=== PATIENT | male | born 1970 | race Caucasian/White ===

== ENCOUNTER 2020-08-05 19:58 | Emergency (ER) | payer MEDICAID ==
[~2020-08-05] VITALS: Ht 172.7 cm; Wt 89.0 kg
[~2020-08-05 19:58] MED LIST: NO HOME MEDS
[2020-08-05 20:25] LABS: BASOPHILS # (AUTO) 0.1 X10'3 (0-0.2); BASOPHILS % (AUTO) 1.1 % (0-1); EOSINOPHILS # (AUTO) 0.3 X10'3 (0-0.9); HEMATOCRIT 47.3 % (42.0-52.0); HEMOGLOBIN 16.5 g/dl (14.0-17.9); LYMPHOCYTES # (AUTO) 3.1 X10'3 (1.1-4.8); LYMPHOCYTES % (AUTO) 30.3 % (21-51); MEAN CORPUSCULAR HEMOGLOBIN 30.3 PG (27.0-31.0); MEAN CORPUSCULAR HGB CONC 34.8 g/dL (33.0-36.5); MEAN PLATELET VOLUME 7.5 FL (7.4-10.4); MONOCYTES # (AUTO) 0.7 X10'3 (0-0.9); MONOCYTES % (AUTO) 6.9 % (2-12); NEUTROPHILS # (AUTO) 6.1 X10'3 (1.8-7.7); NEUTROPHILS % (AUTO) 58.7 % (42-75); PLATELET COUNT 240 X10'3 (140-440); RED BLOOD COUNT 5.44 X10'6 (4.70-6.10); RED CELL DISTRIBUTION WIDTH 13.6 % (11.5-14.5); WHITE BLOOD COUNT 10.4 X10'3 (4.5-11.0)
--- NOTE | 2020-08-05 20:32 | NUR ---
PT IS CALM. STATES TO DR. PATTERSON THAT HE DOES NOT WANT TO HARM HIMSELF BUT ALSO STATES "RIGHT NOW...I JUST DON'T KNOW" ALSO STATING "THIS WAS STUPID".
[2020-08-05 20:37] LABS: ALANINE AMINOTRANSFERASE 30 U/L (12-78); ALBUMIN/GLOBULIN RATIO 1.2 (1.1-1.5); ALKALINE PHOSPHATASE 66 IU/L (46-116); ANION GAP 12 (8-16); ASPARTATE AMINO TRANSFERASE 18 U/L (10-37); BILIRUBIN,TOTAL 1.4 MG/DL (0.1-1.0); BLOOD UREA NITROGEN 12 MG/DL (7-18); BUN/CREATININE RATIO 10.3 (5.4-32.0); CALCIUM 8.3 MG/DL (8.5-10.1); CHLORIDE 105 MMOL/L (99-107); CREATININE 1.17 MG/DL (0.60-1.10); ETHANOL 0.184 GM/DL (0.0-0.010); GLUCOSE 117 MG/DL (70-104); POTASSIUM 3.2 MMOL/L (3.5-5.1); SODIUM 143 MMOL/L (135-145); TOTAL CARBON DIOXIDE 25.8 MMOL/L (24-32); TOTAL PROTEIN 7.3 G/DL (6.4-8.2); eGFR 66 ML/MIN
[2020-08-05 21:12] LABS: URINE AMPHETAMINE SCREEN NEGATIVE (Neg); URINE BARBITUATE SCREEN NEGATIVE (Neg); URINE BENZODIAZEPINES SCREEN NEGATIVE (Neg); URINE CANNABINOID SCREEN POSITIVE (Neg); URINE COCAINE SCREEN NEGATIVE (Neg); URINE METHADONE SCREEN NEGATIVE (Neg); URINE OPIATE SCREEN NEGATIVE (Neg); URINE PHENCYCLIDINE SCREEN NEGATIVE (Neg)
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
--- NOTE | 2020-08-05 22:16 | NUR ---
Pt appears to be resting comfortably, no s/s of distress.
--- NOTE | 2020-08-06 01:16 | NUR ---
Pt appears to be sleeping comfortably, no s/s of distress.
--- NOTE | 2020-08-06 03:37 | NUR ---
Pt is sleeping, no s/s of distress.
--- NOTE | 2020-08-06 04:59 | NUR ---
Pt resting in bed, no s/s of distress.
[2020-08-06 06:02] VITALS: BP 132/88
--- NOTE | 2020-08-06 07:05 | NUR ---
pt is supine in bed, eyes closed, regular breathing observed, no needs at this time
--- NOTE | 2020-08-06 08:05 | NUR ---
pt is eating his breakfast, calm, acepting of medications, no needs at this time
--- NOTE | 2020-08-06 08:45 | NUR ---
pt is being eval by THANIA Quevedo, calm no needs at this time
--- NOTE | 2020-08-06 10:00 | NUR ---
pt is supine in bed, no needs at this time
--- NOTE | 2020-08-06 11:10 | NUR ---
pt is being discharged, signed paperwork, awaiting cab
--- NOTE | 2020-08-06 12:23 | NUR ---
CALLED [facility], THEY ARE BACKED UP, AWAITING TRANSPORT
[2020-08-06] MEDS ORDERED: potassium Cl 20 mEq SR tablet PO SCH (13:00)
== END 2020-08-06 13:36 | disposition home or self-care (01) ==
LOC: ER 19:58
DX: Z02.89 Encounter for other administrative examinations (principal); R45.851 Suicidal ideations; Z72.89 Other problems related to lifestyle; Z98.890 Other specified postprocedural states
CPT/HCPCS: 36415; 70450; 80053; 80305; 80320; 85025; 99285

== ENCOUNTER 2024-09-05 18:26 | Emergency (ER) | payer MEDICAID ==
[~2024-09-05] VITALS: Ht 172.7 cm; Wt 75.0 kg
--- NOTE | 2024-09-05 18:37 | ELECTROCARDIOGRAPH REPORT ---
[facility] Test Date: 2024-09-05 Test Time: 18:30:07 Pat Name: GLO MORALES Department: EMERGENCY ROOM Patient ID: [facility]-[id number] Room: Gender: M [employer] Project Manager: : 1970 Requested By: JEREMY JACQUES Order Number: [id number] Reading MD: Dr. Jeremy Jacques Measurements Intervals [place] Rate: 57 P: 26 SC: 135 QRS: 64 QRSD: 101 T: 41 QT: 416 QTc: 405 Interpretive Statements Sinus bradycardia Electronically Signed On 09-05-2024 19:00:[address] Jeremy Jacques Please click the below link to view image of tracing.
--- NOTE | 2024-09-05 18:52 | RADIOLOGY REPORT ---
CHEST RADIOGRAPH REASON FOR EXAM: Chest pain COMPARISON: None TECHNIQUE: One view of the chest is provided FINDINGS: The cardiomediastinal silhouette is within normal limits for technique. There is no focal a irspace disease. There is no significant pleural effusion. No acute bony abnormality is identified. IMPRESSION: No radiographic evidence of acute cardiopulmonary process.
[2024-09-05 19:08] LABS: MEAN PLATELET VOLUME 7.8 FL (7.4-10.4); RED CELL DISTRIBUTION WIDTH 13.4 % (11.5-14.5)
[2024-09-05 19:10] LABS: CREATININE 1.13 MG/DL (0.60-1.10); PRO BRAIN NATRIURETIC PEPTIDE < 30 PG/ML (0-125); TOTAL CARBON DIOXIDE 26.4 MMOL/L (24-32); eCRCL 73 ML/MIN; eGFR 68 ML/MIN
--- NOTE | 2024-09-05 20:39 | Physician Documentation ---
History of Present Illness ~ Chief Complaint: Chest Pain Stated Complaint: CP Time Seen by MD: 19:55 Mode of Arrival: POV HPI This 54-year-old male presents to the ED with a complaint of chest pain for the last 2 days. Reports it as being a chest pressure versus sharp pain. States he has also had episodes of dizziness. Day his dizziness has somewhat subsided. Does report having in a high stress life. Denies any anxiety however per Denies any nausea vomiting or any alleviating or exacerbating factors. The chest pressure is nonradiating. Denies any cardiac history. Does not have a primary care. Day of Onset: Sep 05, 2024 Medication Reconciliation Allergies: Coded Allergies: No Known Allergies (Unverified , 09/05/24) Miscellaneous Medications Home Med List (No Home Medications), (Reported) Past Medical History Past Medical History: No Pertinent History Past Surgical History: orthopedic surgeries Alcohol Use: Heavy Lives In: Home Occupation: employed Review of Systems All Other Systems at this time: Reviewed and Negative ROS As stated above in the HPI, otherwise all systems are reviewed and negative. Physical Exam Vital Signs: Temperature: 97.8, Source: Oral, Heart Rate: 83, Respiratory Rate: 19, BP: 130/97, Pulse Oximetry: 98, Weight: 75.000 Oxygen Flow Rate: 0 Physical Exam General: Alert, no apparent distress. Respiratory: Lungs clear, no respiratory distress. Cardiovascular: Regular rate and rhythm, no murmurs. Gastrointestinal: Soft, nontender, nondistended. Bowels sounds present. Extremities: Normal range of motion, no deformity. Neurologic: Oriented x4. Psychiatric: Normal mood and affect. Skin: Normal color, warm and dry. No edema, no ecchymosis. Progress Results/Orders Results/Orders Vital Signs 09/05/24 09/05/24 09/05/24 18:31 18:44 18:45 Temp 97.8 97.8 Pulse 74 83 Resp 14 19 B/P (MAP) 170/99 130/97 (108) Pulse Ox 99 98 O2 Flow Rate 0 0 Laboratory Tests Test 09/05/24 18:36 White Blood Count 8.7 Red Blood Count 5.30 Hemoglobin 16.8 Hematocrit 47.5 Mean Corpuscular Volume 89.8 Mean Corpuscular Hemoglobin 31.7 H Mean Corpuscular Hemoglobin Concent 35.4 Red Cell Distribution Width 13.4 Platelet Count 245 Mean Platelet Volume 7.8 Neutrophils (%) (Auto) 60.3 Lymphocytes (%) (Auto) 27.5 Monocytes (%) (Auto) 7.3 Eosinophils (%) (Auto) 3.9 Basophils (%) (Auto) 1.0 Neutrophils # (Auto) 5.3 Lymphocytes # (Auto) 2.4 Monocytes # (Auto) 0.6 Eosinophils # (Auto) 0.3 Basophils # (Auto) 0.1 CBC Comment Sodium Level 136 Potassium Level 3.8 Chloride Level 104 Carbon Dioxide Level 26.4 Anion Gap 6 L Blood Urea Nitrogen 12 Creatinine 1.13 H Estimated GFR/1.73 m2 68 BUN/Creatinine Ratio 10.6 Glucose Level 98 Calcium Level 8.7 Troponin I High Sensitivity 6 Pro-B-Type Natriuretic Peptide < 30 Albumin 3.9 Chemistry Comments Medical Decision Making Findings Discussed with the patient that his laboratory values are very unremarkable as was his EKG and x-ray per my interpretation. Was no evidence of infiltrate cardiomegaly in his x-ray. EKG was regular normal sinus. No evidence of elevated troponins or proBNP in his laboratory values. no Signs of infections.. At this stage in the patient's care I do not currently suspect cardiac event. He is also neurologically intact and show no evidence of focal deficits vision changes. He does meet criteria for further evaluation in the outpatient setting via laboratory values. His symptoms may have been partially caused by minor dehydration. Discuss all my findings some and he agreed he needs to establish with primary care for further eval Differential Dx:Considerations: Include: angina, aortic dissection, chest wall pain, cholelithiasis, CHF, costochondritis, esophageal reflux/spasm, gastritis, herpes zoster, myocardial infarction, pericarditis, pleuritis, pancreatitis, pneumonia, pneumothorax, pulmonary embolus, other Departure Disposition: HOME / SELF CARE / HOMELESS Impression: Primary Impression: Chest pain at rest Additional Impression: Chest pain Discharge Instructions: Nonspecific Chest Pain, Adult Additional Instructions: She has a recommend that she follow up with primary care to establish a baseline lab values and overall physical health Referrals: NO PRIMARY CARE PROVIDER (PCP) Signature Scribe Signature: f Attestation: Scribed for Bishop Mancilla Gatekeeper by Bishop Huerta NP . 09/05/24 20:38 BISHOP MANCILLA NP Sep 05, 2024 20:39
[2024-09-05 20:59] VITALS: BP 149/88; PULSE 71; RESP 12; TEMP 97.8; O2SAT 96
== END 2024-09-05 21:01 | disposition home or self-care (01) ==
LOC: ER 18:28
DX: R07.89 Other chest pain (principal); F10.90 Alcohol use, unspecified, uncomplicated; Y90.9 Presence of alcohol in blood, level not specified
CPT/HCPCS: 36415; 71045; 80048; 83880; 84484; 85025; 93005; 99285

== ENCOUNTER 2025-02-03 09:13 | Emergency (ER) | payer SELFPAY ==
[~2025-02-03] VITALS: Ht 172.7 cm; Wt 81.0 kg
--- NOTE | 2025-02-03 10:00 | Physician Documentation ---
History of Present Illness ~ General Chief Complaint: Flu Symptoms Stated Complaint: FLU SYMPTOMS Time Seen by MD: 09:39 Source: patient Mode of Arrival: EMS Exam Limitations: no limitations History of Present Illness Initial Comments 54-year-old brought in by EMS for flu-like symptoms including nausea vomiting diarrhea patient was concerned and called EMS due to dizziness he is able to hold a small amount of fluid and food down. No head trauma falls or head strike Medication Reconciliation Allergies: Coded Allergies: No Known Allergies (Unverified , 02/03/25) Scheduled PRN ONDANSETRON ODT 4mg tablet (Ondansetron Odt), 1 TABLET PO Q6H PRN for nausea/vomiting Miscellaneous Medications Home Med List (No Home Medications), (Reported) Past Medical History Past Medical History: No Pertinent History Past Surgical History: orthopedic surgeries Alcohol Use: Heavy Lives In: Home Occupation: employed Review of Systems All Other Systems at this time: Reviewed and Negative Gastrointestinal: Reports: see HPI Physical Exam Physical Exam Vital Signs: RN Vital Signs have been reviewed: Yes, Temperature: 98.6, Source: Temporal, Heart Rate: 100, Respiratory Rate: 20, BP: 135/97, Pulse Oximetry: 100, Weight: 81.000 Oxygen Flow Rate: 0 Physical Exam General: Alert, no apparent distress. HEENT: moist mucous membranes. Neck: Full range of motion. Respiratory: No respiratory distress speaking in full sentences Chest: No accessory muscle use. Cardiovascular: Appears well perfused Neurologic: Oriented x4. Psychiatric: Normal mood and affect. Skin: Normal color, warm and dry. No edema, no ecchymosis. Progress Results/Orders Results/Orders Orders - VERA KUMAR NP Covid19 Binax Poc Result Entry (02/03/25 10:23) Completed Orders - VERA KUMAR NP Ondansetron Inj. (Zofran 4mg/2ml Vial) (02/03/25 10:25) Famotidine/Pf Iv Inj (Pepcid Iv Inj) (02/03/25 10:25) Normal Saline 1000ml (0.9% Sodium Chlori (02/03/25 10:25) Influenza Type A&B Rapid Test (02/03/25 10:23) Vital Signs 02/03/25 02/03/25 02/03/25 09:17 10:20 12:11 Temp 98.6 98.6 Pulse 100 81 79 Resp 20 18 18 B/P (MAP) 135/97 136/63 (87) 136/96 Pulse Ox 100 100 100 O2 Flow Rate 0 0 Laboratory Tests Test 02/03/25 10:30 Influenza Type A Antigen Negative Influenza Type B Antigen Negative SARS-CoV-2 Antigen (Rapid) Negative Medical Decision Making Additional information obtaine: N/A Findings COVID and flu negative vital signs reassuring a L of normal saline Pepcid and Zofran provided passed p.o. challenge still slightly dizzy but able to ambulate to the restroom. Discussed viral illness Differential Diagnosis Viral gastroenteritis, COVID, flu Departure Time of Disposition: 12:00 Disposition: HOME / SELF CARE / HOMELESS Impression: Primary Impression: Viral infection Condition: Stable Discharge Instructions: Viral Illness Additional Instructions: Continue to stand up slowly and ambulate with caution maintain hydration. Follow up with primary care on Wednesday Zofran as needed for nausea vomiting Referrals: NO PRIMARY CARE PROVIDER (PCP) Prescriptions ONDANSETRON ODT 4mg tablet (ONDANSETRON ODT) 4 Mg Tab.rapdis 1 TABLET PO Q6H PRN for nausea/vomiting, #16 TABLET Prov: VERA KUMAR NP 02/03/25 Education Educated: Patient Educated regarding: diagnosis, treatment, need for follow up Signature Scribe Signature: No Scribe Attestation: The note accurately reflects work and decisions made by me.Vera RIVERA 02/03/25 12:01 VERA KUMAR NP Feb 03, 2025 10:00
[2025-02-03] MEDS: famotidine/PF 10 mg/ml inj IV ONE (10:25)
[2025-02-03] MEDS: ondansetron/PF 4mg/2ml inj IV ONE (10:25)
[2025-02-03] MEDS: normal saline 1000ML IV soln IVB ONE (10:39)
[2025-02-03 10:55] LABS: INFLUENZA TYPE A ANTIGEN RAPID NEGATIVE (Negative); INFLUENZA TYPE B ANTIGEN RAPID NEGATIVE (Negative)
[2025-02-03] MEDS ORDERED: ONDA-243 PO (12:01)
[2025-02-03 12:11] VITALS: BP 136/96; PULSE 79; RESP 18; TEMP 98.6; O2SAT 100
== END 2025-02-03 12:03 | disposition home or self-care (01) ==
LOC: ER 09:14
DX: B34.9 Viral infection, unspecified (principal); Z98.890 Other specified postprocedural states; Z20.822 Contact with and (suspected) exposure to COVID-19
CPT/HCPCS: 36415; 87804; 87811; 96361; 96374; 96375; 99284; J2405; J3490; J7030